=== PATIENT | male | born 1990 ===

== ENCOUNTER 2018-10-06 14:30 | Emergency (ER) | payer MEDICAID ==
[2018-10-06 14:38] VITALS: BP 115/65; PULSE 75; TEMP 98.8; O2SAT 98
[2018-10-06] MEDS ORDERED: Lidocaine 5% Patch TD STA (15:12)
--- NOTE | 2018-10-06 15:12 | C.PDOC ---
History Of Present Illness 28 y/o male with hx of 'pinched nerve' in neck and herniated disks in back comes to ER for worsening pain in both areas. pt recently seen by PMD and given rx for 5 days of Tramadol, which has been used up. denies any trauma or new injury. no bladder or bowel dysfunction, no saddle anesthesia. no weakness to extremities. Time Seen by Provider: 10/06/18 14:55 Chief Complaint (Nursing): Back Pain History Per: Patient History/Exam Limitations: no limitations Onset/Duration Of Symptoms: Days Current Symptoms Are (Timing): Worse Quality Of Discomfort: "Pain" Severity: Moderate Previous Symptoms: Back Pain, Neck Pain, Chronic Pain Associated Symptoms: denies: Incontinence, New Weakness, New Numbness Exacerbating Factor(s): Movement Past Medical History Reviewed: Historical Data, Nursing Documentation, Vital Signs Vital Signs: Last Vital Signs Temp 98.8 F 10/06/18 14:34 Pulse 75 10/06/18 14:34 Resp 20 10/06/18 14:34 BP 115/65 10/06/18 14:34 Pulse Ox 98 10/06/18 14:34 Primary Care Provider: Renny Pitts - Medical History PMH: Anxiety, Arthritis, Asthma, Bipolar Disorder, Depression Surgical History: Tonsillectomy Family History: States: Unknown Family Hx - Social History Hx Alcohol Use: Yes Hx Substance Use: Yes - Immunization History Hx Tetanus Toxoid Vaccination: No Hx Influenza Vaccination: No Hx Pneumococcal Vaccination: No Review Of Systems Constitutional: Negative for: Fever, Chills Cardiovascular: Negative for: Chest Pain Respiratory: Negative for: Cough, Shortness of Breath Gastrointestinal: Negative for: Nausea, Vomiting, Abdominal Pain Musculoskeletal: Positive for: Neck Pain, Back Pain. Negative for: Arm Pain, Leg Pain Skin: Negative for: Rash Neurological: Negative for: Weakness, Numbness Physical Exam - Physical Exam Appears: Non-toxic, No Acute Distress Skin: Warm, Dry Head: Atraumatic, Normacephalic Eye(s): bilateral: Normal Inspection Neck: No Midline Cervical Tenderness, Paracervical Tenderness (right side), No Step Off Deformity, Supple Chest: Symmetrical, No Deformity, No Tenderness Cardiovascular: Rhythm Regular, No Murmur Respiratory: No Decreased Breath Sounds, No Rales, No Rhonchi, No Wheezing Back: No CVA Tenderness, No Vertebral Tenderness, Paraspinal Tenderness (bilateral lumbar areas. ) Extremity: Normal ROM, No Tenderness, No Swelling Pulses: Left Dorsalis Pedis: Normal, Right Dorsalis Pedis: Normal Neurological/Psych: Oriented x3, Normal Speech, Normal Cognition, Normal Motor, Normal Sensation ED Course And Treatment O2 Sat by Pulse Oximetry: 98 Medical Decision Making Medical Decision Making: pt reports being on tramadol recently. 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 Message left for Dr Pitts to call ER to discuss patient. pt made aware that I am unable to refill rx for tramadol. pt offered alternative analgesic medications such as toradol, lidoderm and Tylenol. pt declines toradol, accepts lidoderrm. pt is being verbally abusive to staff about not getting his tramadol. decline muscle relaxant, pt sts he has it at home, pt advised to f/u with pain mgmt and his pmd. . Disposition Counseled Patient/Family Regarding: Diagnosis, Need For Followup, Rx Given - Disposition Referrals: Renny Pitts MD [Medical Doctor] - John Grossman MD [Staff Provider] - Disposition: HOME/ ROUTINE Disposition Time: 15:28 Condition: GOOD Additional Instructions: Please continue taking Flexeril at bedtime. Take naproxen (with food) 2 times a day, Take Tylenol every 6 hours. Remove ptches in 12 hours. Follow up with Dr Pitts and with Dr Grossman, pain management doctor. Prescriptions: Acetaminophen [Tylenol 325mg tab] 650 mg PO Q6 #30 tab Naproxen 500 mg PO BID #20 tab Instructions: Low Back Pain (DC) Forms: [employer] Connect ([place]), General Discharge Instructions - Clinical Impression Clinical Impression: Low back pain, Cervical strain
[2018-10-06] MEDS ORDERED: Lidocaine 5% Patch TD ONE (15:21)
[2018-10-06 15:39] VITALS: RESP 18
== END 2018-10-06 15:51 | disposition home or self-care (01) ==
LOC: C.ER 14:30
DX: S16.1XXA Strain of muscle, fascia and tendon at neck level, initial encounter (principal); X58.XXXA Exposure to other specified factors, initial encounter; M54.5 Low back pain